=== PATIENT | female | born 1985 | race African-American/Black ===

== ENCOUNTER 2022-07-31 18:21 | Inpatient (IN) | payer OTHER ==
[2022-07-31 19:20] VITALS: BMI 24.2
[2022-07-31] MEDS ORDERED: POLYETHYLENE GLYCOL (HEALTHYLAX) 3350 17 GM PACKET PO PRN (20:52)
[2022-07-31] MEDS ORDERED: IBUPROFEN 400 MG TABLET (FP) PO PRN (20:52)
[2022-07-31] MEDS ORDERED: METHOCARBAMOL 500 MG TABLET PO PRN (20:52)
[2022-07-31] MEDS ORDERED: MAGNESIUM HYDROX 2400MG/30ML ORAL SUSPENSION 30 ML CUP PO PRN (20:52)
[2022-07-31] MEDS ORDERED: NALOXONE HCL (KLOXXADO) 8 MG SPRAY NS PRN (20:52)
[2022-07-31] MEDS ORDERED: BISMUTH SUBSALICYLATE 524 MG/30 ML PO PRN (20:52)
[2022-07-31] MEDS ORDERED: BENZOCAINE/MENTHOL (CHLORASEPTIC ) LOZENGE MM PRN (20:52)
[2022-07-31] MEDS ORDERED: LOPERAMIDE HCL 2 MG CAPSULE PO PRN (20:52)
[2022-07-31] MEDS ORDERED: IBUPROFEN 600 MG TABLET (FP) PO PRN (20:52)
[2022-07-31] MEDS ORDERED: ACETAMINOPHEN 325 MG TABLET (FP) PO PRN ×2 (20:52)
[2022-07-31] MEDS ORDERED: MAG HYDROX/AL HYDROX/SIMETH 30 ML UNIT-DOSE CUP PO PRN (20:52)
[2022-07-31] MEDS ORDERED: DICYCLOMINE HCL 10 MG CAPSULE PO PRN (20:52)
[2022-07-31] MEDS ORDERED: ONDANSETRON *ODT* 4 MG TABLET SL PRN (20:52)
[2022-07-31] MEDS: MELATONIN 5 MG TABLETS PO SCH (23:00)
[2022-07-31] MEDS: THIAMINE HCL 100 MG TABLET (FP) PO SCH (23:00)
[2022-08-01] MEDS: PRENATAL VITAMINS W/ FOLIC ACID TABLET (FP) PO SCH (10:32)
[2022-08-01 11:05] LABS: HEMATOCRIT 41.7 % (32.4-45.2); MCH 32.4 pg (25.7-33.7); MCHC 33.5 g/dl (32.0-36.0); MEAN CELL VOLUME 96.8 fl (80-96); MEAN PLT VOLUME 7.3 fl (7.5-11.1); PLATELET COUNT 273 10^3/uL (134-434); RBC 4.31 M/mm3 (3.60-5.2); RDW 13.4 % (11.6-15.6); WHITE BLOOD COUNT 6.2 K/mm3 (4.0-10.0)
[2022-08-01 11:14] LABS: ALBUMIN 3.4 g/dl (3.4-5.0); BLOOD UREA NITROGEN 13.1 mg/dL (7-18); CALCIUM 8.8 mg/dL (8.5-10.1)
[2022-08-01 11:18] LABS: CREATININE 0.9 mg/dL (0.55-1.3)
[2022-08-01 11:19] LABS: BILIRUBIN,TOTAL 0.8 mg/dL (0.2-1); TOT PROT 6.6 g/dl (6.4-8.2)
[2022-08-01] MEDS: MELATONIN 5 MG TABLETS PO SCH (22:54)
[2022-08-01] MEDS: THIAMINE HCL 100 MG TABLET (FP) PO SCH (22:54)
[2022-08-02] MEDS: PRENATAL VITAMINS W/ FOLIC ACID TABLET (FP) PO SCH (10:27)
[2022-08-02] MEDS ORDERED: LORazepam 1 MG TABLET PO PRN (13:19)
[2022-08-02] MEDS: LORazepam 2 MG TABLET PO SCH ×2 (17:40→22:49)
[2022-08-02] MEDS: MELATONIN 5 MG TABLETS PO SCH (22:49)
[2022-08-02] MEDS: THIAMINE HCL 100 MG TABLET (FP) PO SCH (22:49)
[2022-08-03] MEDS: LORazepam 2 MG TABLET PO SCH ×4 (06:08→23:00)
[2022-08-03] MEDS: PRENATAL VITAMINS W/ FOLIC ACID TABLET (FP) PO SCH (10:33)
[2022-08-03] MEDS: THIAMINE HCL 100 MG TABLET (FP) PO SCH (22:56)
[2022-08-03] MEDS: MELATONIN 5 MG TABLETS PO SCH (22:56)
[2022-08-04] MEDS: LORazepam 1 MG TABLET PO SCH ×4 (06:27→22:18)
[2022-08-04] MEDS: PRENATAL VITAMINS W/ FOLIC ACID TABLET (FP) PO SCH (10:21)
[2022-08-04] MEDS: MELATONIN 5 MG TABLETS PO SCH (22:16)
[2022-08-04] MEDS: THIAMINE HCL 100 MG TABLET (FP) PO SCH (22:16)
[2022-08-05] MEDS ORDERED: LORazepam 0.5 MG TABLET PO PRN
[2022-08-05] MEDS: LORazepam 0.5 MG TABLET PO SCH ×4 (06:36→22:09)
[2022-08-05] MEDS: PRENATAL VITAMINS W/ FOLIC ACID TABLET (FP) PO SCH (09:57)
[2022-08-05] MEDS: THIAMINE HCL 100 MG TABLET (FP) PO SCH (22:09)
[2022-08-05] MEDS: MELATONIN 5 MG TABLETS PO SCH (22:25)
[2022-08-06] MEDS ORDERED: LORazepam 0.5 MG TABLET PO ONE (05:00)
[2022-08-06 06:44] VITALS: BP 115/80; PULSE 96; RESP 18; TEMP 97.8
[2022-08-06] MEDS: PRENATAL VITAMINS W/ FOLIC ACID TABLET (FP) PO SCH (09:35)
== END 2022-08-06 09:38 | disposition home or self-care (01) | DRG 773 ==
LOC: YASAS 18:21 → Y3N 21:38
PROVIDERS: ADMIT Allergy & Immunology; ATTEND Family Medicine
PROC: HZ2ZZZZ Detoxification Services for Substance Abuse Treatment (ICD-10-PCS; principal; 2022-07-31)
DX: F10.230 Alcohol dependence with withdrawal, uncomplicated (principal); F11.20 Opioid dependence, uncomplicated; F12.20 Cannabis dependence, uncomplicated; F17.210 Nicotine dependence, cigarettes, uncomplicated; F19.24 Other psychoactive substance dependence with psychoactive substance-induced mood disorder; U07.1 COVID-19; J45.20 Mild intermittent asthma, uncomplicated
CPT/HCPCS: 36415; 71046-TC-FY; 80053; 81025; 85027; 86780; 93005; 93010; C9803-CS; U0003; U0005

== ENCOUNTER 2024-11-03 11:44 | Inpatient (IN) | payer OTHER ==
[2024-11-03] MEDS ORDERED: DICYCLOMINE HCL 10 MG CAPSULE PO PRN (12:09)
[2024-11-03] MEDS ORDERED: guaiFENesin 600 MG TABLET.ER (FP) PO PRN (12:09)
[2024-11-03] MEDS ORDERED: BENZONATATE 200 MG CAPSULE PO PRN (12:09)
[2024-11-03] MEDS ORDERED: BENZOCAINE/MENTHOL (CHLORASEPTIC ) LOZENGE MM PRN (12:09)
[2024-11-03] MEDS ORDERED: NALOXONE (NARCAN) HCL 4 MG/0.1 ML SPRAY NS PRN (12:09)
[2024-11-03] MEDS ORDERED: POLYETHYLENE GLYCOL (HEALTHYLAX) 3350 17 GM PACKET PO PRN (12:09)
[2024-11-03] MEDS ORDERED: ONDANSETRON *ODT* 4 MG TABLET SL PRN (12:09)
[2024-11-03] MEDS ORDERED: BISMUTH SUBSALICYLATE 262 MG/15 ML BTL PO PRN (12:09)
[2024-11-03] MEDS ORDERED: ACETAMINOPHEN 325 MG TABLET (FP) PO PRN (12:09)
[2024-11-03] MEDS ORDERED: LOPERAMIDE HCL 2 MG CAPSULE PO PRN (12:09)
[2024-11-03] MEDS ORDERED: IBUPROFEN 400 MG TABLET (FP) PO PRN (12:09)
[2024-11-03] MEDS ORDERED: MAGNESIUM HYDROX 2400MG/30ML ORAL SUSPENSION 30 ML CUP PO PRN (12:09)
[2024-11-03] MEDS ORDERED: METHOCARBAMOL 500 MG TABLET PO PRN (12:09)
[2024-11-03] MEDS ORDERED: LORazepam 1 MG TABLET PO PRN (12:09)
[2024-11-03] MEDS ORDERED: hydrOXYzine PAMOATE 25 MG CAPSULE (FP) PO PRN (12:09)
[2024-11-03] MEDS ORDERED: ALBUTEROL SO4 HFA INHALER IH PRN (12:17)
[2024-11-03 12:34] VITALS: BMI 27.8
[2024-11-03] MEDS ORDERED: NICOTINE 14 MG/24 HOURS TOPICAL PATCH TD ONE (13:55)
[2024-11-03] MEDS ORDERED: PRENATAL VITAMINS W/ FOLIC ACID TABLET (FP) PO ONE (13:55)
[2024-11-03] MEDS: NICOTINE 14 MG/24 HOURS TOPICAL PATCH TD SCH (13:56)
[2024-11-03] MEDS: PRENATAL VITAMINS W/ FOLIC ACID TABLET (FP) PO SCH (13:56)
[2024-11-03] MEDS: LORazepam 2 MG TABLET PO SCH (17:17)
[2024-11-03] MEDS: THIAMINE 100 MG TABLET PO SCH (21:15)
[2024-11-03] MEDS: MELATONIN 5 MG TABLETS PO SCH (21:15)
[2024-11-04 10:44] LABS: POTASSIUM 4.6 mmol/L (3.5-5.1)
[2024-11-04 10:50] LABS: HEMATOCRIT 41.1 % (34.1-44.9); HEMOGLOBIN 13.6 g/dL (11.2-15.7); MCHC 33.1 g/dl (32.2-35.5); MEAN CELL VOLUME 93.8 fl (79.4-94.8); MEAN PLT VOLUME 10.3 fl (9.4-12.3); PLATELET COUNT 288 x10^3/uL (182-369); RDW 13.5 % (12.1-16.8)
[2024-11-04 10:56] LABS: CALCIUM 9.3 mg/dL (8.5-10.1)
[2024-11-04 10:57] LABS: ALBUMIN 3.1 g/dl (3.4-5.0)
[2024-11-04 11:00] LABS: CREATININE 0.7 mg/dL (0.55-1.3)
[2024-11-04 11:02] LABS: BILIRUBIN,TOTAL 0.5 mg/dL (0.2-1); TOT PROT 6.4 g/dl (6.4-8.2)
[2024-11-04] MEDS: NALTREXONE HCL 50 MG TABLET PO ONE (15:38)
[2024-11-04] MEDS: MAG HYDROX/AL HYDROX/SIMETH 30 ML UNIT-DOSE CUP PO PRN (17:44)
[2024-11-05] MEDS: LORazepam 1 MG TABLET PO SCH (05:57)
[2024-11-05] MEDS: IBUPROFEN 600 MG TABLET (FP) PO PRN (17:22)
[2024-11-06] MEDS ORDERED: LORazepam 0.5 MG TABLET PO PRN
[2024-11-06] MEDS: LORazepam 0.5 MG TABLET PO SCH (05:50)
[2024-11-07] MEDS: LORazepam 0.5 MG TABLET PO ONE (05:22)
[2024-11-07 05:49] VITALS: BP 104/61; PULSE 69; RESP 16; TEMP 97.8
== END 2024-11-07 09:08 | disposition home or self-care (01) | DRG 774 ==
LOC: YASAS 11:44 → Y3N 13:58
PROVIDERS: ADMIT Allergy & Immunology; ATTEND Allergy & Immunology
PROC: HZ2ZZZZ Detoxification Services for Substance Abuse Treatment (ICD-10-PCS; principal; 2024-11-03)
DX: F10.230 Alcohol dependence with withdrawal, uncomplicated (principal); F14.20 Cocaine dependence, uncomplicated; F12.20 Cannabis dependence, uncomplicated; F17.210 Nicotine dependence, cigarettes, uncomplicated; F41.9 Anxiety disorder, unspecified; F32.A Depression, unspecified; J45.20 Mild intermittent asthma, uncomplicated
CPT/HCPCS: 36415; 80053; 80305; 80307; 81025; 85027; 86780; 93005; 93010